=== PATIENT | male | born 1965 | race African-American/Black ===

== ENCOUNTER 2022-10-06 14:13 | Emergency (ER) | payer MEDICAID ==
[~2022-10-06] VITALS: Ht 167.6 cm; Wt 68.2 kg
[~2022-10-06 14:13] MED LIST: NOCURR
[2022-10-06] MEDS ORDERED: DOXY-354 PO (16:27)
[2022-10-06] MEDS ORDERED: CEPH-558 PO (16:28)
[2022-10-06 16:30] VITALS: BP 122/81
== END 2022-10-06 16:37 | disposition home or self-care (01) ==
LOC: EMS 14:15
DX: L03.311 Cellulitis of abdominal wall (principal); L02.211 Cutaneous abscess of abdominal wall; F17.210 Nicotine dependence, cigarettes, uncomplicated; Z88.2 Allergy status to sulfonamides; Z88.8 Allergy status to other drugs, medicaments and biological substances
CPT/HCPCS: 99283

== ENCOUNTER 2022-10-07 14:01 | Emergency (ER) | payer MEDICAID ==
[~2022-10-07] VITALS: Ht 170.2 cm; Wt 79.5 kg
[~2022-10-07 14:01] MED LIST changes: +CEPH-558 PO; +DOXY-354 PO; -NOCURR
[2022-10-07 14:50] VITALS: BP 122/80
[2022-10-07] MEDS ORDERED: CEPHALEXIN MONOHYDRATE 500 MG CAPSULE PO ONE (15:30)
[2022-10-07] MEDS ORDERED: DOXYCYCLINE HYCLATE 100 MG TABLET PO ONE (15:30)
== END 2022-10-07 15:45 | disposition home or self-care (01) ==
LOC: EMS 14:29
DX: L03.311 Cellulitis of abdominal wall (principal); L02.211 Cutaneous abscess of abdominal wall; F17.210 Nicotine dependence, cigarettes, uncomplicated; F12.90 Cannabis use, unspecified, uncomplicated; Z88.2 Allergy status to sulfonamides; Z88.8 Allergy status to other drugs, medicaments and biological substances
CPT/HCPCS: 99283

== ENCOUNTER 2023-01-17 14:28 | Emergency (ER) | payer MEDICAID ==
[~2023-01-17] VITALS: Ht 167.6 cm; Wt 72.7 kg
[2023-01-17 14:37] VITALS: BP 148/99; PULSE 11; RESP 16; TEMP 98.2
== END 2023-01-17 17:39 | disposition left against medical advice (07) ==
LOC: EMS 14:30
DX: L02.511 Cutaneous abscess of right hand (principal); Z53.21 Procedure and treatment not carried out due to patient leaving prior to being seen by health care provider
CPT/HCPCS: 99281; Z7502